=== PATIENT | male | born 1970 | race Caucasian/White ===

== ENCOUNTER 2017-02-16 13:29 | Emergency (ER) | payer OTHER ==
[2017-02-16 13:38] VITALS: BP 143/75; PULSE 57; TEMP 99.5; BMI 24.3
[2017-02-16] MEDS ORDERED: METHOCARBAMOL 500 MG TABLET PO ONE (13:41)
[2017-02-16] MEDS ORDERED: METHOCARBAMOL 500 MG TABLET ONE (13:46)
--- NOTE | 2017-02-16 13:46 | PDOC ---
History of Present Illness - General Chief Complaint: Pain Stated Complaint: LEFT LOWER BACK PAIN Time Seen by Provider: 02/16/17 13:30 History Source: Patient Exam Limitations: No Limitations - History of Present Illness Initial Comments: 02/16/17 13:41 47 year old male with no past medical history presents with left lower back pain. 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 Stated that when he lays still, his back pain is improved to a 1 intensity. But when he moves, flexes, extends his back, his pain intensifies to an 8. No urinary or bowel incontinence. No numbness, weakness. States that the pain is in his left lower back. Describes as sharp. Past History - Past Medical History Allergies/Adverse Reactions: Allergies Allergy/AdvReac Type Severity Reaction Status Date / Time No Known Allergies Allergy Verified 02/16/17 13:30 Home Medications: Ambulatory Orders Naproxen [Naprosyn -] 500 mg PO BID PRN #20 tablet 02/16/17 Oxycodone HCl/Acetaminophen [Percocet 5-325 mg Tablet] 1 - 2 tab PO Q6H PRN #20 tab MDD 4 02/16/17 COPD: No Other medical history: DENIES - Suicide/Smoking/Psychosocial Hx Smoking History: Never smoked Hx Alcohol Use: (occasional) Review of Systems - Review of Systems Able to Perform ROS?: Yes Comments:: 02/16/17 13:44 GENERAL/CONSTITUTIONAL: No fever, weakness. HEAD, EYES, EARS, NOSE AND THROAT: No change in vision. No ear pain or discharge. No sore throat. CARDIOVASCULAR: No chest pain or shortness of breath. RESPIRATORY: No cough, wheezing, or hemoptysis. GASTROINTESTINAL: No abdominal pain, nausea, vomiting, diarrhea, or decreased PO intolerance. GENITOURINARY: No dysuria, frequency, or change in urination. MUSCULOSKELETAL: No joint or muscle swelling or pain. No neck pain. +Left lower back pain. SKIN: No rash NEUROLOGIC: No headache, vertigo, loss of consciousness, or change in strength/ sensation. ENDOCRINE: No increased thirst. No abnormal weight change. HEMATOLOGIC/LYMPHATIC: No anemia, easy bleeding, or history of blood clots. ALLERGIC/IMMUNOLOGIC: No hives or skin allergy. *Physical Exam - Vital Signs Last Vital Signs Temp Pulse Resp BP Pulse Ox 99.5 F 57 L 18 143/75 100 02/16/17 13:30 02/16/17 13:30 02/16/17 13:30 02/16/17 13:30 02/16/17 13:30 - Physical Exam Comments: 02/16/17 13:44 GENERAL: Awake, alert, and fully oriented, in no acute distress. HEAD: No signs of trauma EYES: PERRLA, EOMI, sclera anicteric, conjunctiva clear ENT: Auricles normal inspection, hearing grossly normal, nares patent, oropharynx clear without exudates. NECK: Normal ROM, supple BACK: no spinal tenderness to palpation. left lumbar paraspinal muscle tenderness to palpation. EXTREMITIES: Normal range of motion, no edema. No clubbing or cyanosis. No cords, erythema, or tenderness NEUROLOGICAL: Cranial nerves II through XII grossly intact. Normal speech, normal gait SKIN: Warm, Dry, normal turgor, no rashes or lesions noted. Medical Decision Making - Medical Decision Making 02/16/17 13:45 Vital Signs Temp Pulse Resp BP Pulse Ox 99.5 F 57 L 18 143/75 100 02/16/17 13:30 02/16/17 13:30 02/16/17 13:30 02/16/17 13:30 02/16/17 13:30 I suspect lower back spasm. Heat packs Muscle relaxants Pt already took 600 mg ibuprofen prior to arrival. Reasess 02/16/17 15:59 After flexeril and PO valium, pt reported no relief. Pt given two tablets of percocet which improved the pain significantly. Again, I suspect muscle spasm. Will have the patient follow up with PMD Return precautions given. Pt's will drive patient home I discussed the physical exam findings, ancillary test results and final diagnoses with the patient. I answered all of the patient's questions. The patient was satisfied with the care received and felt comfortable with the discharge plan and treatment plan. The patient will call their primary care physician within 24 hours to arrange follow-up and will return to the Emergency Department with any new, persistant or worsening symptoms. *DC/Admit/Observation/Transfer Diagnosis at time of Disposition: Back spasm - Discharge Dispostion Disposition: HOME Condition at time of disposition: Improved Admit: No - Prescriptions Prescriptions: Naproxen [Naprosyn -] 500 mg PO BID PRN #20 tablet PRN Reason: Back Pain Oxycodone HCl/Acetaminophen [Percocet 5-325 mg Tablet] 1 - 2 tab PO Q6H PRN #20 tab MDD 4 PRN Reason: Severe Pain - Referrals Referrals: Nicholas Arteaga MD [Primary Care Provider] - - Patient Instructions Printed Discharge Instructions: DI for Back Spasm Additional Instructions: Drink plenty of fluids and rest. Follow up with your doctor. It may take several days before your symptoms improve. Take 500 mg naproxen every 12 hours as needed for pain. For additional relief, take a tablet of percocet every 6 hours as needed. Do not drink or drive while on this medication. - Post Discharge Activity
[2017-02-16] MEDS ORDERED: diazePAM 5 MG TABLET PO ONE (14:20)
[2017-02-16] MEDS ORDERED: diazePAM 5 MG TABLET ONE (14:26)
== END 2017-02-16 16:05 | disposition home or self-care (01) ==
LOC: FER 13:29
DX: M62.830 Muscle spasm of back (principal)
CPT/HCPCS: 99283-25